=== PATIENT | female | born 1955 | race Caucasian/White ===

== ENCOUNTER 2017-01-14 14:30 | Emergency (ER) | payer MEDICARE, BC, OTHER ==
[~2017-01-14] VITALS: Ht 165.1 cm; Wt 45.0 kg
[~2017-01-14 14:30] MED LIST: FIORIC PO; HYDR15TA PO; Ondansetron Hcl PO; PROT40TA PO; ULTR50TA PO; [UNRECOGNIZED DRUG - CODE]
[2017-01-14 14:33] VITALS: BP 140/78; PULSE 110; RESP 16; TEMP 98.4; O2SAT 98
[2017-01-14] MEDS ORDERED: PLAQ200T PO ×2 (15:22)
[2017-01-14] MEDS ORDERED: BACT800T5 PO (15:22)
[2017-01-14] MEDS ORDERED: PROM25TA10 PO (15:22)
[2017-01-14] MEDS ORDERED: ULTR50TA5 PO (15:22)
[2017-01-14] MEDS ORDERED: CLIN1CAP5 PO (15:58)
--- NOTE | 2017-01-14 16:01 | PD ---
HPI Chief Complaint: Skin Problem Time Seen by Provider: 15:28 Travel History International Travel<30 days: No Contact w/Intl Traveler<30days: No Traveled to known affect area: No History of Present Illness HPI The patient was seen and examined in the presence of the nurse. This patient complains of infection or left buttock. Duration 5 days. She's been taking Bactrim DS for several days and no change as of yet. She saw a director security risk management today who did a culture of it. She denies fever. Symptoms severity is mild to moderate PFSH Past Medical History Arthritis: Yes Cancer: Yes (SKIN) Cardiovascular Problems: Yes (MVP) Diabetes: No Diminished Hearing: No Endocrine: No Fibromyalgia: Yes Gastrointestinal Disorders: Yes (IRRITABLE BOWEL) Genitourinary: No Hepatitis: No Hiatal Hernia: No Hypertension: No Immune Disorder: Yes (LUPUS, FIBROMYALGIA) Medical other: No Musculoskeletal: Yes (NECK BACK ARTHRITIS) Neurologic: No Psychiatric: No Respiratory: No Thyroid Disease: No ?: Not Menopausal: Yes : 6 Para: 7 Past Surgical History Body Medical Devices: RIGHT ANKLE Gynecologic Surgery: Yes (PARTIAL HYSTERECTOMY) Hysterectomy: Yes Pacemaker: No Other Surgery: Yes (SKIN CANCER) Social History Alcohol Use: No Tobacco Use: No Substance Use: No Allergies-Medications (Allergen,Severity, Reaction): Coded Allergies: No Known Allergies (Unverified , 01/14/17) Reported Meds & Prescriptions Reported Meds & Active Scripts Active Clindamycin (Clindamycin HCl) 150 Mg Cap 150 Mg PO Q6H Reported Ultram (Tramadol HCl) 50 Mg Tab 50 Mg PO Q8H PRN Phenergan (Promethazine HCl) 25 Mg Tablet 25 Mg PO BID Plaquenil (Hydroxychloroquine Sulfate) 200 Mg Tab 100 Mg PO DAILY@1600 Take with food Plaquenil (Hydroxychloroquine Sulfate) 200 Mg Tab 200 Mg PO DAILY Take with food Bactrim DS (Sulfamethoxazole-Trimethoprim) 800-160 Mg Tab 1 Tab PO BID Review of Systems General / Constitutional: No: Fever Cardiovascular: No: Chest Pain or Discomfort Respiratory: No: Cough Physical Exam Narrative GASTROINTESTINAL: Abdomen soft, non-tender, nondistended. Positive bowel sounds. No hepato-splenomegaly, or palpable masses. No guarding. Psych: Normal mood and affect. Normal insight and judgment. SKIN: Focused skin assessment reveals no rash or ulcers. Skin is warm and dry. Palpation shows a 1.51.5 cm area of induration without fluctuance or drainage or spreading cellulitis. Data Data Last Documented VS Vital Signs Date Time Temp Pulse Resp B/P Pulse Ox O2 Delivery O2 Flow Rate FiO2 01/14/17 15:22 16 01/14/17 14:33 98.4 110 140/78 98 MDM Medical Decision Making Medical Screen Exam Complete: Yes Emergency Medical Condition: Yes Medical Record Reviewed: Yes Differential Diagnosis Abscess, cellulitis, boil Narrative Course I have reviewed the patient's electronic medical record. I don't feel this patient requires incision or drainage or IV antibiotics. It' s a small well circumscribed indurated area I added clindamycin to her Bactrim They have a follow-up Tuesday already with the director security risk management set up to reevaluate and go over culture results Diagnosis Primary Impression: Infected skin lesion Additional Instructions: The patient was advised to follow up with their physician and return if they worsen. Med/Other Pt SpecificInfo: Prescription(s) given Scripts Clindamycin 150 Mg [id number] Mg PO Q6H #56 CAP Ref 0 Prov:Angel Singh MD 01/14/17 Disposition: 01 DISCHARGE HOME Condition: Stable Angel Singh MD Jan 14, 2017 16:01
== END 2017-01-14 16:33 | disposition home or self-care (01) ==
LOC: PHED 14:30
DX: L08.9 Local infection of the skin and subcutaneous tissue, unspecified (principal); Z87.39 Personal history of other diseases of the musculoskeletal system and connective tissue; Z85.828 Personal history of other malignant neoplasm of skin; Z86.79 Personal history of other diseases of the circulatory system; Z87.19 Personal history of other diseases of the digestive system; Z86.2 Personal history of diseases of the blood and blood-forming organs and certain disorders involving the immune mechanism
CPT/HCPCS: 99283

== ENCOUNTER → 2017-08-29 | Day surgery (SDC) | payer MEDICARE, BC ==
[~2017-08-29] MED LIST changes: +BACT800T5 PO; +BUPIVACAINE HCL PF 0.5% 30 ML VIAL ONE; +BUPIVACAINE HCL PF 0.75% 30 ML VIAL ONE; +CLIN150C14 PO; -FIORIC PO; -HYDR15TA PO; -Ondansetron Hcl PO; +PLAQ200T PO; +PROM25TA10 PO; +PROPOFOL 200 MG/20 ML AMP IV ONE; -PROT40TA PO; +TRAM50 PO; +TRIAMCINOLONE ACETONIDE 40 MG/ML VIAL I-ARTICULR ONE; -ULTR50TA PO; -[UNRECOGNIZED DRUG - CODE]; +methylPREDNISolone ACETATE 40 MG/ML VIAL I-ARTICULR ONE
--- NOTE | 2017-08-29 09:20 | M6 ---
cc: Amita Zamora MD DATE: 08/29/2017 PROCEDURE: Fluoroscopically-guided injection right L4-L5 and right L5-S1 facet joints. History and physical was completed and signed. Consent was signed. Procedure site was marked. Medications were listed and reconciled. Pain score was recorded. Allergies were noted. Time out was taken. Fluoroscopy time was recorded where applicable. Sedation was administered or directed by Dr. Zamora. The patient was given oxygen. The patient was monitored by a registered nurse. Total procedure time was greater than 15 minutes. IV was started. Blood pressure cuff, pulse oximeter and EKG were applied. The patient was placed in the prone position on a Gaurav table, sedated with small amounts of Propofol titrated to effect. Vital signs were monitored and remained stable throughout the procedure. The lumbar area was prepped with alcohol and 10% Betadine solution and draped with sterile drapes. Fluoroscopy was used in a Sanjay dog view to clearly visualize the right L4-L5 and right L5-S1 neural foramen. The skin was prepped with alcohol and 10% Betadine solution and draped with sterile drapes. Then, a Separate sterile 3.5 inch, 25-gauge spinal needles were advanced into these 2 joints. There was negative aspiration for blood or any other type of fluid and at each location, the patient was given 1 mL of Marcaine 0.75%, which contained 10 mg of Kenalog. Following the procedure, the patient was taken to the recovery room with stable vital signs and neurologically intact. Amita Zamora MD [facility]/TL , 08:37 AM , 09:19 AM
== END | disposition home or self-care (01) ==
LOC: PHSDC 06:54
PROVIDERS: ATTEND Pain Medicine Interventional Pain Medicine
DX: M54.5 Low back pain (principal); M25.551 Pain in right hip
CPT/HCPCS: 64493; 64494; 99152; J1030; J3301